=== PATIENT | male | born 2000 | race Two or more races ===

== ENCOUNTER 2021-05-08 17:23 | Emergency (ER) | payer OTHER ==
[~2021-05-08] VITALS: Ht 160 cm; Wt 60.0 kg
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
[2021-05-08 17:49] LABS: BASOPHILS % (AUTO) 1 % (0-1); EOSINOPHILS % (AUTO) 4 % (1-7); LYMPHOCYTES % (AUTO) 20 % (22-44); MEAN CORPUSCULAR HEMOGLOBIN 31.8 pg (27.0-34.8); MEAN CORPUSCULAR HGB CONC 34.7 g/dL (32.4-35.8); MEAN PLATELET VOLUME 9.5 fL (7.4-10.4); MONOCYTES % (AUTO) 6 % (2-9); NEUTROPHILS % (AUTO) 68 % (42-75); PLATELET COUNT 243 x10^3/uL (130-400); RED BLOOD COUNT 4.83 x10^6/uL (3.82-5.3); RED CELL DISTRIBUTION WIDTH 13.7 % (9.6-15.2)
--- NOTE | 2021-05-08 17:57 | NUR ---
MEDICATION REQ SLIP SENT DOWN PER EMAR.
[2021-05-08] MEDS ORDERED: LEVETIRACETAM 1,000 MG in SODIUM CHLORIDE 0.9% 100 ML IV ONE (18:00)
[2021-05-08] MEDS ORDERED: PLEASE ENTER ALLERGIES MC SCH (18:00)
[2021-05-08 18:02] LABS: ALBUMIN 3.8 g/dL (3.4-5.0); ANION GAP 7 mmol/L (5-15); CALCIUM 8.9 mg/dL (8.5-10.1); CHLORIDE 106 mmol/L (98-107); CREATININE 0.89 mg/dL (0.55-1.02)
--- NOTE | 2021-05-08 18:14 | NUR ---
PT MEDICATED PER EMAR.
[2021-05-08 18:55] VITALS: BP 110/66
--- NOTE | 2021-05-08 19:02 | NUR ---
Patient given discharge instructions and they have confirmed that they understand the instructions. Patient ambulatory with steady gait. Pt states friend is coming to pick him up
== END 2021-05-08 19:24 | disposition home or self-care (01) ==
LOC: EDSEX 17:23 → ED 18:00
DX: G40.309 Generalized idiopathic epilepsy and epileptic syndromes, not intractable, without status epilepticus (principal); R89.2 Abnormal level of other drugs, medicaments and biological substances in specimens from other organs, systems and tissues; R94.31 Abnormal electrocardiogram [ECG] [EKG]; F17.200 Nicotine dependence, unspecified, uncomplicated
CPT/HCPCS: 36415; 80048; 82040; 85025; 93005; 96374; 99284; J1953; 96365

== ENCOUNTER 2021-05-23 17:49 | Emergency (ER) | payer MEDICAID, OTHER ==
[~2021-05-23] VITALS: Ht 165.1 cm; Wt 63.6 kg
--- NOTE | 2021-05-23 18:03 | NUR ---
CHEMA AFTER HAVING X2 WITNESSED SEIZURE PT W/ HX OF SEIZURES AND TBI. PER EMS PT DID NOT HIT HEAD. PT RAN OUT OF HIS KEPPRA AND STATES HE HAS A NEUROLOGY APPOINTMENT COMING UP. PT ATTACHED TO MONITORS AND POSTIONED TO COMFORT IN BED. [employer]SKim. ESAU. DR. CARDOSO EVALUATED.
--- NOTE | 2021-05-23 18:05 | NUR ---
YELLOW SLIP SENT TO PHARM FOR KEPPRA SP. VSS. CIFUENTES.
[2021-05-23 18:20] LABS: BASOPHILS % (AUTO) 1 % (0-1); EOSINOPHILS % (AUTO) 3 % (1-7); LYMPHOCYTES % (AUTO) 17 % (22-44); MEAN CORPUSCULAR HEMOGLOBIN 31.7 pg (27.5-34.5); MEAN CORPUSCULAR HGB CONC 34.7 g/dL (33.2-36.2); MEAN PLATELET VOLUME 9.8 fL (7.4-10.4); MONOCYTES % (AUTO) 6 % (2-9); NEUTROPHILS % (AUTO) 74 % (42-75); PLATELET COUNT 228 x10^3/uL (130-400); RED BLOOD COUNT 4.71 x10^6/uL (4.38-5.82); RED CELL DISTRIBUTION WIDTH 13.8 % (9.4-14.8)
[2021-05-23 18:31] LABS: ANION GAP 6 mmol/L (5-15); CALCIUM 8.7 mg/dL (8.5-10.1); CHLORIDE 109 mmol/L (98-107); CREATININE 0.93 mg/dL (0.7-1.3)
--- NOTE | 2021-05-23 18:52 | NUR ---
BEDSIDE REPORT TO MONET VAZQUEZ
[2021-05-23] MEDS ORDERED: SODIUM CHLORIDE FLUSH 10ML SYR IVF ONE (19:00)
[2021-05-23] MEDS ORDERED: LEVETIRACETAM 1,000 MG in SODIUM CHLORIDE 0.9% 100 ML IV ONE (19:00)
--- NOTE | 2021-05-23 19:01 | NUR ---
REPORT FROM ISIAH ASSUMED CARE OF PT
[2021-05-23 20:24] VITALS: BP 122/80
== END 2021-05-23 20:33 | disposition home or self-care (01) ==
LOC: ED 20:27
DX: R56.9 Unspecified convulsions (principal)
CPT/HCPCS: 36415; 80048; 82040; 85025; 96374; 99283; J1953; 96365; 99284

== ENCOUNTER 2021-07-03 03:06 | Emergency (ER) | payer MEDICAID ==
[~2021-07-03] VITALS: Ht 162.6 cm; Wt 68.2 kg
[2021-07-03] MEDS ORDERED: NALOXONE 0.4 MG/ML, 1ML ONE (03:11)
[2021-07-03] MEDS ORDERED: ZIPRASIDONE 20 MG INJ IM ONE ×2 (03:15→03:30)
[2021-07-03] MEDS ORDERED: PLEASE ENTER ALLERGIES MC SCH (03:30)
[2021-07-03] MEDS ORDERED: SODIUM CHLORIDE 0.9% 1,000ML IVBOLUS ONE (03:30)
--- NOTE | 2021-07-03 03:30 | NUR ---
Ronda VAZQUEZ supervised straight cath of patient to obtain urine
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
[2021-07-03 04:06] LABS: BASOPHILS % (AUTO) 1 % (0-1); EOSINOPHILS % (AUTO) 2 % (1-7); LYMPHOCYTES % (AUTO) 44 % (22-44); MEAN CORPUSCULAR HEMOGLOBIN 31.7 pg (27.5-34.5); MEAN CORPUSCULAR HGB CONC 34.4 g/dL (33.2-36.2); MEAN PLATELET VOLUME 9.4 fL (7.4-10.4); MONOCYTES % (AUTO) 4 % (2-9); NEUTROPHILS % (AUTO) 49 % (42-75); PLATELET COUNT 255 x10^3/uL (130-400); RED BLOOD COUNT 5.08 x10^6/uL (4.38-5.82); RED CELL DISTRIBUTION WIDTH 13.7 % (9.4-14.8)
[2021-07-03 04:10] LABS: ALBUMIN 3.7 g/dL (3.4-5.0); ANION GAP 13 mmol/L (5-15); CALCIUM 7.7 mg/dL (8.5-10.1); CHLORIDE 112 mmol/L (98-107); SALICYLATE LEVEL 2.2 mg/dL (2.8-20.0)
[2021-07-03 04:14] LABS: ALANINE AMINOTRANSFERASE 34 U/L (12-78); ALKALINE PHOSPHATASE 82 U/L (45-117); BILIRUBIN,TOTAL 0.3 mg/dL (0.2-1.0); CREATININE 0.98 mg/dL (0.7-1.3); TOTAL PROTEIN 7.7 g/dL (6.4-8.2)
[2021-07-03 04:20] LABS: AMPHETAMINE SCREEN, URINE Negative (Negative); BARBITURATE SCREEN, URINE Negative (Negative); BENZODIAZEPINE SCREEN, URINE Positive (Negative); CANNABINOID SCREEN, URINE Positive (Negative); COCAINE SCREEN, URINE Negative (Negative); METHADONE SCREEN, URINE Negative (Negative); OPIATE SCREEN, URINE Negative (Negative)
[2021-07-03] MEDS ORDERED: LORazepam 2 MG/ML, 1ML ONE (04:24)
--- NOTE | 2021-07-03 05:16 | NUR ---
NARCAN NOT GIVEN
[2021-07-03] MEDS ORDERED: LORazepam 2 MG/ML, 1ML IVPush ONE (05:30)
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
--- NOTE | 2021-07-03 08:38 | NUR ---
PATIENT COOPERATIVE, STATES HIS NAME IS BEN, KNOWS HE IS IN THE HOSPITAL. RESTRAINTS REMOVED, PATIENT UNABLE TO FULLY STAND AT THIS TIME, WILL CONTINUE TO MTF. CONNECTED TO MONITOR, VSS, CALL LIGHT WITHIN REACH.
--- NOTE | 2021-07-03 09:55 | NUR ---
PATIENT IS READY TO GO, COOPERATIVE WITH STAFF. UP FOR RECHECK.
[2021-07-03 10:46] VITALS: BP 104/76
--- NOTE | 2021-07-03 10:47 | NUR ---
IV removed with tip intact. Patient given discharge instructions and they have confirmed that they understand the instructions. Patient ambulatory with steady gait. NAD, all questions answered appropriately, denies additional needs at this time. No personal belongings left in room after discharge.
== END 2021-07-03 10:49 | disposition home or self-care (01) ==
LOC: EDBD → ED 04:00 → MERGE 04:12 → UNDOADMOB 04:12 → EDIP 04:12 → ED 10:49
DX: R41.82 Altered mental status, unspecified (principal); G31.2 Degeneration of nervous system due to alcohol; F10.121 Alcohol abuse with intoxication delirium; R00.0 Tachycardia, unspecified; Z72.9 Problem related to lifestyle, unspecified; Y90.0 Blood alcohol level of less than 20 mg/100 ml
CPT/HCPCS: 36415; 80053; 80299; 80307; 80320; 80329; 85025; 93005; 96361; 96372; 96374; 99284; J2060; J3486; J7030; G0480